=== PATIENT | female | born 1990 | race Caucasian/White ===

== ENCOUNTER 2020-12-30 16:28 | Observation (INO) | payer BC, OTHER ==
[~2020-12-30 16:28] MED LIST: CELEXA20 MG PO; CLARITIN10 MG PO; FERROUS SULFAT325 M2 PO; NAPROSYN500 MG PO; PRENATAL VITAM1 EAC8 PO; TRANDATE 100 M100 MG PO; VISTARIL25 MG PO; ZANTAC150 MG PO; ZOFRAN4 MG PO
[2020-12-30 18:29] LABS: HEMOGLOBIN 10.3 gm/dl (12.3-15.3); RED BLOOD COUNT 3.74 M/UL (4.00-5.10); WHITE BLOOD COUNT 10.5 K/UL (4.5-11.0)
[2020-12-30 18:49] LABS: BUN/CREATININE RATIO 19 (0-10)
== END 2020-12-30 20:58 | disposition home or self-care (01) ==
LOC: GENOP 16:28 → OB 17:50
PROVIDERS: ADMIT Obstetrics & Gynecology
DX: O13.2 Gestational [pregnancy-induced] hypertension without significant proteinuria, second trimester (principal); Z3A.22 22 weeks gestation of pregnancy
CPT/HCPCS: 36415; 59025; 80053; 81001; 82570; 84156; 84550; 85025; G0378

== ENCOUNTER 2021-02-09 15:39 | Inpatient (IN) | payer BC, OTHER ==
[~2021-02-09] VITALS: Ht 165.1 cm; Wt 119.7 kg
[2021-02-09 16:33] LABS: HEMOGLOBIN 10.7 gm/dl (12.3-15.3); RED BLOOD COUNT 3.94 M/UL (4.00-5.10)
[2021-02-09 16:57] LABS: BUN/CREATININE RATIO 17 (0-10)
[2021-02-09] MEDS ORDERED: LABETALOL HCL100 MG PO (19:10)
[2021-02-09] MEDS ORDERED: OMEPRAZOLE10 MG PO (19:10)
[2021-02-10] MEDS ORDERED: HYDROCODON-ACE1 EAC6 PO (08:09)
[2021-02-10] MEDS ORDERED: IBUPROFEN600 MG PO (08:09)
[2021-02-10] MEDS ORDERED: COLACE 100MG C100 MG PO (08:09)
[2021-02-11 05:57] LABS: HEMOGLOBIN 9.6 gm/dl (12.3-15.3)
== END 2021-02-12 19:19 | disposition home or self-care (01) | DRG 787 ==
LOC: GENOP 15:39 → OB 15:48
PROVIDERS: ADMIT Obstetrics & Gynecology
PROC: 10D00Z1 Extraction of Products of Conception, Low, Open Approach (ICD-10-PCS; principal; 2021-02-10 07:55)
DX: O34.211 Maternal care for low transverse scar from previous cesarean delivery (principal); O10.92 Unspecified pre-existing hypertension complicating childbirth; N85.8 Other specified noninflammatory disorders of uterus; Z20.822 Contact with and (suspected) exposure to COVID-19; Z3A.38 38 weeks gestation of pregnancy; Z37.0 Single live birth; O76 Abnormality in fetal heart rate and rhythm complicating labor and delivery; O99.214 Obesity complicating childbirth; O24.420 Gestational diabetes mellitus in childbirth, diet controlled; O99.344 Other mental disorders complicating childbirth; F41.9 Anxiety disorder, unspecified; F32.9 Major depressive disorder, single episode, unspecified; Z28.21 Immunization not carried out because of patient refusal
CPT/HCPCS: 36415; 80053; 81001; 82800; 82962; 85014; 85018; 85025; C9113; J0690; J1170; J1885; J2274; J2405; J2550; J2590; J3010; J7120; U0002